=== PATIENT | female | born 1945 | race Caucasian/White ===

== ENCOUNTER 2019-07-24 16:53 | Emergency (ER) | payer OTHER, MEDICARE ==
[2019-07-24 17:02] VITALS: BP 156/87; PULSE 76; TEMP 98; BMI 23.8
[2019-07-24] MEDS ORDERED: SODIUM CHLORIDE 1,000 ML IV SCH (17:15)
[2019-07-24] MEDS ORDERED: traMADol HCL 50 MG TABLET PO ONE (17:25)
[2019-07-24] MEDS ORDERED: IBUPROFEN 400 MG TABLET (FP) PO ONE ×2 (17:25→17:36)
--- NOTE | 2019-07-24 17:33 | PDOC ---
History of Present Illness - General Chief Complaint: Weakness Stated Complaint: WEAKNESS TO LEGS Time Seen by Provider: 07/24/19 16:55 History Source: Patient, Spouse Exam Limitations: No Limitations - History of Present Illness Initial Comments: 07/24/19 17:31 73-year-old female with history of hypertension, high cholesterol, diabetes presents with for 2 days of bilateral leg pain with standing. No history of falls, no known history of arthritis or neuropathy. Pt has not had similar pain in the past, denies abd pain/urinary complaints, no f/c, no motor or sensory deficit, no fever/chills. Pt took tylenol with temporary relief, but pain returns, so presents to ED. Pt recently had normal routine PCP f/u about 3 weeks ago. no h/o spine surgery/abd surgery. Past History - Past Medical History Allergies/Adverse Reactions: Allergies Allergy/AdvReac Type Severity Reaction Status Date / Time No Known Allergies Allergy Verified 07/24/19 16:54 Home Medications: Ambulatory Orders Lisinopril 20 mg PO DAILY 07/24/19 Metformin HCl [Glucophage] 500 mg PO DAILY 07/24/19 Pravastatin Sodium 10 mg PO DAILY 07/24/19 COPD: No HTN: Yes Hypercholesterolemia: Yes - Psycho Social/Smoking Cessation Hx Smoking History: Never smoked Have you smoked in the past 12 months: No Information on smoking cessation initiated: No Hx Alcohol Use: No Review of Systems - Review of Systems Constitutional: No: Chills, Fever, Night Sweats, Unintentional Wgt. Loss Respiratory: No: Cough, Shortness of Breath Cardiac (ROS): No: Chest Pain, Edema, Lightheadedness ABD/GI: No: Constipated, Diarrhea, Vomiting : No: Dysuria, Frequency, Flank Pain, Hematuria Musculoskeletal: Yes: See HPI Integumentary: No: Bruising, Rash Neurological: No: Headache All Other Systems: Reviewed and Negative *Physical Exam - Vital Signs Last Vital Signs Temp Pulse Resp BP Pulse Ox 98 F 76 18 156/87 97 07/24/19 16:53 07/24/19 16:53 07/24/19 16:53 07/24/19 16:53 07/24/19 16:53 - Physical Exam 07/24/19 17:35 Vital signs normal, afebrile. GENERAL: The patient is awake, alert, and fully oriented, in no acute distress lying in stretcher. Primarily [place] speaking but able to communicate in [place]. HEAD: Normal with no signs of trauma. EYES: PERRL, EOMI, sclera anicteric, conjunctiva clear with no pallor. ENT: Oropharynx clear without exudates. Moist mucous membranes. NECK: Normal range of motion, supple without lymphadenopathy or masses. LUNGS: Breath sounds equal, clear to auscultation bilaterally. No wheeze/ crackles. HEART: Regular rate and rhythm, normal S1 and S2 without murmur or rub. ABDOMEN: Soft/nontender/nondistended. BS wnl. No guarding or rebound. No palpable masses. No hepatosplenomegaly. EXTREMITIES: No midline spine tenderness to palpation. Normal range of motion, no edema. 2+ DP pulses. No cords, erythema, or tenderness. No focal bony or soft tissue tenderness to palpation including the soles of the feet, no deformity, no warmth or erythema, no joint effusions or deformities. 5 out of 5 flexion/extension of bilateral hips/knees/ankle/toes. NEUROLOGICAL: Cranial nerves II through XII grossly intact. Normal speech, antalgic gait favoring low back and hips on my observation. PSYCH: Normal mood, normal affect. SKIN: Warm, Dry, no rashes or lesions noted. ED Treatment Course - LABORATORY CBC & Chemistry Diagram: 07/24/19 18:35 07/24/19 18:35 - RADIOLOGY Radiology Studies Ordered: Category Date Time Status PELVIS [RAD] Stat Radiology 07/24/19 17:24 Ordered SPINE-LUMBAR SACRAL [RAD] Stat Radiology 07/24/19 17:24 Ordered Medical Decision Making - Medical Decision Making 07/24/19 17:37 73-year-old female with history of hypertension, diabetes presents with atraumatic low back/pelvic/hip pain for 2 days, worse with weightbearing and ambulating. No evidence of infectious or vascular process, neuropathy was on the differential given the history of diabetes but pain is much more proximal, calling into question radiculopathy. Patient's presentation seems most consistent with arthritis, reportedly feels better after Tylenol. Hemodynamically stable here without other red flags on history or physical exam. Check LS spine and pelvis x-rays Trial of ibuprofen and tramadol Neurovascular intact, will reassess 07/24/19 18:34 Patient very comfortably seated in chair, no acute distress and smiling. Upon standing after medications, still favoring right low back/right hip. On my preliminary review, there are arthritic changes on the lumbosacral spine and pelvis x-rays, but no obvious fracture or dislocation. Patient has no other complaints, but now reporting that she vomited prior to arrival and has had decreased appetite for 1 day. Vital signs remain normal, abdomen remains benign, will check CBC and chemistry to rule out acute metabolic abnormality, urinalysis pending to rule out UTI, will reassess. If above is within normal limits, will discuss disposition with PCP. 07/24/19 18:57 no leukocytosis, wbc 10. chem/ua pending. Discharge - Discharge Information Problems reviewed: Yes Clinical Impression/Diagnosis: Musculoskeletal pain Condition: Stable - Follow up/Referral - Patient Discharge Instructions - Post Discharge Activity
[2019-07-24] MEDS ORDERED: traMADol HCL 50 MG TABLET ONE (17:37)
[2019-07-24 18:46] LABS: BASO % 0.4 % (0-2.0); EOS % 0.4 % (0-4.5); HEMATOCRIT 42.8 % (32.4-45.2); HEMOGLOBIN 14.1 GM/dl (10.7-15.3); LYMPH % 15.8 % (8-40); MCH 30.4 pg (25.7-33.7); MEAN PLT VOLUME 8.2 fl (7.5-11.1); MONO % 3.6 % (3.8-10.2); NEUT % 79.8 % (42.8-82.8); PLATELET COUNT 342 K/MM3 (134-434); RBC 4.65 M/mm3 (3.60-5.2); RDW 12.9 % (11.6-15.6); WHITE BLOOD COUNT 10.4 K/mm3 (4.0-10.8)
[2019-07-24 19:08] LABS: ALBUMIN 3.8 g/dl (3.4-5.0); BILIRUBIN,TOTAL 0.9 mg/dl (0.2-1); CALCIUM 8.9 mg/dl (8.5-10); CREATININE 0.7 mg/dl (0.55-1.3); POTASSIUM 3.8 mmol/L (3.5-5.1); TOT PROT 7.4 g/dl (6.4-8.2)
[2019-07-24 19:14] LABS: EPITHELIAL CELLS FEW /hpf
--- NOTE | 2019-07-24 19:29 | PDOC ---
*Physical Exam - Vital Signs Last Vital Signs Temp Pulse Resp BP Pulse Ox 98 F 76 18 156/87 97 07/24/19 16:53 07/24/19 16:53 07/24/19 16:53 07/24/19 16:53 07/24/19 16:53 ED Treatment Course - LABORATORY CBC & Chemistry Diagram: 07/24/19 18:35 07/24/19 18:35 - ADDITIONAL ORDERS Additional order review: Laboratory Results 07/24/19 07/24/19 18:35 17:30 Sodium 136 Potassium 3.8 Chloride 106 Carbon Dioxide 24 Anion Gap 6 L BUN 16.0 Creatinine 0.7 Est GFR (CKD-EPI)AfAm 98.23 Est GFR (CKD-EPI)NonAf 84.75 Random Glucose 201 H Calcium 8.9 Total Bilirubin 0.9 AST 117 H ALT 43 Alkaline Phosphatase 66 Creatine Kinase Cancelled Total Protein 7.4 Albumin 3.8 Urine Color Yellow Urine Appearance Slightly Urine pH 5.0 Urine Protein 2+ H Urine Glucose (UA) 2+ H Urine Ketones 1+ H Urine Blood 2+ H Urine Nitrite Negative Urine Bilirubin Negative Urine Urobilinogen 0.2 Ur Leukocyte Esterase Negative Urine RBC 0-2 Urine WBC 20-40 Ur Transition Epith Cell Few Urine Bacteria Many 07/24/19 18:35 RBC 4.65 MCV 92.0 MCHC 33.0 RDW 12.9 MPV 8.2 Neutrophils % 79.8 Lymphocytes % 15.8 Monocytes % 3.6 L Eosinophils % 0.4 Basophils % 0.4 - Medications Given in the ED: ED Medications Discontinued Medications Generic Name Dose Route Start Last Admin Trade Name Freq PRN Reason Stop Dose Admin Sodium Chloride 1,000 mls @ 42 mls/hr 07/24/19 17:15 07/24/19 17:45 Normal Saline - IV Not Given ASDIR JACQUELINE Ibuprofen 400 mg 07/24/19 17:25 07/24/19 17:39 Motrin - PO 07/24/19 17:26 400 mg ONCE ONE Administration Tramadol HCl 50 mg 07/24/19 17:25 07/24/19 17:40 Ultram - PO 07/24/19 17:26 50 mg ONCE ONE Administration ED Progress Note - Progress Note Progress Note: Care of this patient received from Dr. Awad. CBC, chemistry profile and urinalysis results: Generally unremarkable but urinalysis consistent with UTI (20-40 WBCs/hpf; many bacteria on microscopic exam). Results discussed with the patient and her . Neither can recall if patient has had UTIs in the past. Prescription for Macrobid for 7 days sent to her pharmacy. Meanwhile, first dose of Macrodantin 100 mg given here in the emergency room. Patient will follow-up with her general medical doctor within the next 5 days; she should return to the emergency room if she has fever; increased abdominal pain or vomiting Discharge - Discharge Information Problems reviewed: Yes Clinical Impression/Diagnosis: Musculoskeletal pain UTI (urinary tract infection) Qualifiers: Urinary tract infection type: site unspecified Hematuria presence: without hematuria Qualified Code(s): N39.0 - Urinary tract infection, site not specified Condition: Stable Disposition: HOME - Additional Discharge Information Prescriptions: Nitrofurantoin Macrocrystal [Macrodantin] 100 mg PO BID #14 capsule - Follow up/Referral - Patient Discharge Instructions Patient Printed Discharge Instructions: Urinary Tract Infection Additional Instructions: Drink plenty of fluids Macrobid 100 mg twice a day for 1 week Motrin/Advil 400 mg twice a day as needed for pain; take with food Continue all other medications as previously prescribed Follow-up with your general medical doctor within the next 5 days Return to ER immediately if you have worsening pain or experience vomiting/fever - Post Discharge Activity
[2019-07-24] MEDS ORDERED: CIPROFLOXACIN 250 MG TABLET (RESTRICTED TO ID) PO ONE (19:45)
[2019-07-24] MEDS ORDERED: NITROFURANTOIN MACROCRYSTAL 50 MG CAPSULE (FP) ONE (19:49)
[2019-07-24] MEDS ORDERED: NITROFURANTOIN MACROCRYSTAL 50 MG CAPSULE (FP) PO SCH (20:00)
== END 2019-07-24 20:05 | disposition home or self-care (01) ==
LOC: FER 16:53
DX: M79.10 Myalgia, unspecified site (principal); I10 Essential (primary) hypertension; E11.9 Type 2 diabetes mellitus without complications; M54.5 Low back pain
CPT/HCPCS: 36415; 72100-TC-FY; 72170-TC-FY; 80053; 81003; 81015; 85025; 87086; 99284-25